=== PATIENT | male | born 1930 | race Caucasian/White ===

== ENCOUNTER 2020-04-09 06:27 | Day surgery (SDC) | payer MEDICARE ==
[~2020-04-09] VITALS: Ht 182.9 cm; Wt 97.5 kg
[~2020-04-09 06:27] MED LIST: B12INJ IM; CELEBREX 200 M200 M1 PO; COREG6.25 MG PO; COZAAR 25 MG TA25 M2 PO; ELIQUIS5 MG PO; FLOMAX0.4 MG PO; MIRTAZAPINE7.5 MG PO; SYNTHROID137 MC1 PO
[2020-04-09 07:00] VITALS: BP 177/99
--- NOTE | 2020-04-13 06:19 | O ---
[facility] [place] [address] OPERATIVE REPORT Name: SIMÓN DELEON Room #: [facility]#: [id number] Admission: 04/09/20 Attend Phys: Dale Zamora MD Discharge: 04/09/20 Date of : [birth year] Report #: [id number] THIS REPORT FOR: cc: Aditya Dash MD,Aditya Zamora,Dale Cheek MD ~ CC: Aditya Zamora DATE OF SERVICE: 04/09/2020 SURGEON: Dale Zamora MD PRODUCTION DESIGNER: None. PREOPERATIVE DIAGNOSIS: Bilateral lower lid ectropion. POSTOPERATIVE DIAGNOSIS: Bilateral lower lid ectropion. OPERATION PERFORMED: Bilateral lower lid ectropion repair. ANESTHESIA: Local with IV sedation. COMPLICATIONS: None. INDICATIONS FOR PROCEDURE: This patient has bilateral acquired lower lid ectropion with chronic tearing, keratopathy and discharge. The current procedures are undertaken in order to improve the patient's visual function, lacrimal outflow, and level of comfort. Informed consent was obtained to include but not limit to the risk of loss of vision, bleeding, infection, scarring, failure to improve the problem and need for further surgery. DESCRIPTION OF OPERATION: The patient was taken to the operating room where 2% Xylocaine with epinephrine mixed with equal parts of 0.75% Marcaine with Wydase was administered transcutaneously and transconjunctivally to each lower lid and lateral canthal area. The patient was then prepped and draped in the usual sterile fashion. A Milad clamp was then used to clamp the left lateral canthus following which a sharp canthotomy and cantholysis were performed. The tarsal strip was prepared laterally, removing the lash bearing portion of the redundant lid margin and the redundant tarsal plate. Hemostasis was achieved with a monopolar cautery, as it was throughout the case. The tarsal strip was then secured to the internal portion of the lateral orbital tubercle with two interrupted 5-0 Prolene sutures. The lateral canthal angle was sharply reformed [address] [address] OPERATIVE REPORT Name: SIMÓN DELEON Room #: [facility].#: [id number] Admission: 04/09/20 Attend Phys: Dale Zamora MD Discharge: 04/09/20 Date of : [birth year] Report #: [id number] as the subcutaneous structures and the skin were closed with multiple interrupted 6-0 plain gut sutures. Attention was then turned to the right side where the same procedure was performed. The wounds were cleaned and dressed with ophthalmic antibiotic ointment. The patient was then transported to the recovery area, having tolerated the procedure well with no anesthetic or operative complications being noted. <ELECTRONICALLY SIGNED> By: Dale Zamora MD 04/13/20 0619 [id number] Dale Zamora MD /loly
== END 2020-04-09 08:35 | disposition home or self-care (01) ==
LOC: OR 06:27 → TBA 06:28 → OR 07:45
PROVIDERS: ATTEND Ophthalmology
DX: H02.105 Unspecified ectropion of left lower eyelid (principal); H02.102 Unspecified ectropion of right lower eyelid; I10 Essential (primary) hypertension; E03.9 Hypothyroidism, unspecified; Z98.890 Other specified postprocedural states; Z79.899 Other long term (current) drug therapy; Z96.653 Presence of artificial knee joint, bilateral; Z87.891 Personal history of nicotine dependence; Z98.41 Cataract extraction status, right eye; Z98.42 Cataract extraction status, left eye; Z86.73 Personal history of transient ischemic attack (TIA), and cerebral infarction without residual deficits; Z79.01 Long term (current) use of anticoagulants; Z20.828 Contact with and (suspected) exposure to other viral communicable diseases
CPT/HCPCS: 50010; 50101; 50386; 50398; 51636; 56527; 56531; 62110; 62850; 70005